=== PATIENT | male | born 1985 | race Caucasian/White ===

== ENCOUNTER → 2023-09-15 16:32 | Outpatient (CLI) | payer OTHER, SELFPAY ==
--- NOTE | 2023-09-15 16:38 | DI.RAD.S_ITS ---
PROCEDURE: XR LUMBAR SPINE 2-3V INDICATIONS: LUMBAR PAIN TECHNIQUE: 4 views of the lumbar spine were acquired. COMPARISON: None. FINDINGS: Bones: 5 ibr-[id number] vertebrae are present. There is normal bony alignment. No vertebral body compression fractures. No suspicious bony lesions. Minimal degenerative endplate changes of the superior endplate of L3. Soft tissues: Overlying bowel gas pattern is normal. No suspicious soft tissue calcifications. IMPRESSION: No acute osseous abnormalities. No significant degenerative changes. Dictated by: Oswald Lowe M.D. on 09/16/2023 at 8:22 Approved by: Oswald Lowe M.D. on 09/16/2023 at 8:23
== END ==
PROVIDERS: PCP Family Medicine; Visit Provider Family Medicine
DX: M54.50 Low back pain, unspecified (principal)
CPT/HCPCS: 72100

== ENCOUNTER → 2023-11-22 07:00 | Outpatient (CLI) | payer OTHER, SELFPAY ==
--- NOTE | 2023-11-22 08:00 | DI.MRI.S_ITS ---
PROCEDURE: MR LUMBAR SPINE WO CON INDICATIONS: LUMBAR SPINE COMPRESSION INJURY, LUMBAR PAIN TECHNIQUE: Noncontrast sagittal T1 spin echo and T2 fast echo, sagittal STIR, and T2 fast spin echo through the lumbar spine. In cases with scoliosis, additional coronal T2 fast spin echo may be performed. COMPARISON: [facility], CR, XR LUMBAR SPINE 2-3V, 09/15/2023, 15:54. FINDINGS: Image quality: Excellent. Alignment and Curvature: There is normal bony alignment. Bone Marrow: Marrow is of normal overall signal. No acute vertebral body compression fractures. Spinal Cord: Conus medullaris terminates at the T12-L1 level. Visualized cord demonstrates normal signal and size. Paraspinous Soft Tissues: No paravertebral masses. T12-L1: Normal appearance. L1-L2: Facet arthropathy. No central canal or neural foraminal stenosis. L2-L3: Mild disc bulge. Facet arthropathy and thickening of ligamentum flavum. Mild central canal stenosis. Mild bilateral neural foraminal stenosis. L3-L4: Disc desiccation and mild height loss. Mild diffuse disc bulge. Facet arthropathy and thickening of ligamentum flavum. Mild central canal stenosis. Mild bilateral neural foraminal stenosis. L4-L5: Facet arthropathy. No significant central canal or neural foraminal stenosis. L5-S1: Right paracentral disc protrusion. Facet arthropathy. No central canal stenosis. Mild bilateral neural foraminal stenosis. IMPRESSION: Mild multilevel degenerative changes of the lumbar spine as described above. Dictated by: Oswald Lowe M.D. on 11/22/2023 at 9:17 Approved by: Oswald Lowe M.D. on 11/22/2023 at 9:20
== END ==
LOC: MRI 07:01
PROVIDERS: PCP Family Medicine; Referring Provider Family Medicine; Visit Provider Family Medicine
DX: M47.816 Spondylosis without myelopathy or radiculopathy, lumbar region (principal); M47.817 Spondylosis without myelopathy or radiculopathy, lumbosacral region; M51.36 Other intervertebral disc degeneration, lumbar region; M51.27 Other intervertebral disc displacement, lumbosacral region; M48.061 Spinal stenosis, lumbar region without neurogenic claudication; M48.07 Spinal stenosis, lumbosacral region; G58.8 Other specified mononeuropathies; M79.604 Pain in right leg
CPT/HCPCS: 72148

== ENCOUNTER → 2024-07-06 15:12 | Outpatient (CLI) | payer OTHER, SELFPAY ==
--- NOTE | 2024-07-06 15:13 | DI.MRI.S_ITS ---
PROCEDURE: MR HIP RT WO CON INDICATIONS: CHRONIC RIGHT HIP PAIN TECHNIQUE: Noncontrast coronal T1 spin echo and STIR through the bony pelvis. Coronal and axial T2 fast spin echo with fat saturation, sagittal T1 spin echo, and oblique axial T2 fast spin echo with fat saturation through the hip. COMPARISON: [facility], CR, XR LUMBAR SPINE 2-3V, 09/15/2023, 15:54. FINDINGS: Image quality: Excellent. Bones: The bone marrow signal is normal. There is no evidence of acute fracture, osteonecrosis, or acetabular dysplasia. There is minimal cam (2/18) morphology of the femoral heads without significant lateral femoral neck synovial cyst formation or a significant lateral femoral osseous protuberance. Joints: The sacroiliac joints are preserved, without reactive marrow changes. The hip joints are preserved. There is no significant right hip joint effusion or pericapsular edema. Acetabular cartilage: There is no focal articular cartilage defect. Labrum: There is a small right hip posterior-superior labral tear from the 1 o'clock to 3 o'clock position (9 o'clock is anterior; 09/09-). Bursae: There is no increased fluid within the greater trochanteric or iliopsoas bursae. Muscles: The muscles about the pelvis appear normal in signal and size. Tendons: There is mild intermediate signal of the right gluteus medius tendon as it inserts onto the greater trochanter (3/18). The tendons about the pelvis otherwise appear normal in signal and size. Nerves: The sciatic nerves are normal in signal and caliber. Vessels: The dominant flow voids are preserved. Other: No other acute abnormality. IMPRESSION: 1. Mild right gluteus medius tendinosis. 2. Small right hip posterior-superior labral tear. 3. Minimal bilateral CAM morphology of the proximal femurs. No significant hip osteoarthritis at this time. Dictated by: Reggie Avery M.D. on 07/06/2024 at 17:02 Approved by: Reggie Avery M.D. on 07/06/2024 at 17:09
== END ==
PROVIDERS: PCP Family Medicine; Referring Provider Family Medicine; Visit Provider Family Medicine
DX: S73.191A Other sprain of right hip, initial encounter (principal); M25.551 Pain in right hip; G89.29 Other chronic pain
CPT/HCPCS: 73721